=== PATIENT | female | born 2000 | race Caucasian/White ===

== ENCOUNTER 2021-02-23 08:40 | Inpatient (IN) | payer BC, MEDICAID, OTHER ==
--- NOTE | 2021-02-23 09:08 | ED ---
General Adult HPI - General Chief complaint: Psychiatric Symptoms Stated complaint: mental health Time Seen by Provider: 02/23/21 08:49 Source: patient, family, RN notes reviewed, old records reviewed Mode of arrival: ambulatory Limitations: no limitations - History of Present Illness Initial comments: 20-year-old female presenting for mental health evaluation. Patient has had increased depression, anxiety, and suicidal thoughts over the past 2 months. Denies current medical history or physical complaint. No suicide attempt. - Related Data Home Medications Medication Instructions Recorded Confirmed No Known Home Medications 02/23/21 02/23/21 Allergies Allergy/AdvReac Type Severity Reaction Status Date / Time lemon Allergy Unknown Verified 02/23/21 10:10 Review of Systems ROS Statement: Those systems with pertinent positive or pertinent negative responses have been documented in the HPI. ROS Other: All systems not noted in ROS Statement are negative. Past Medical History Past Medical History: Asthma, Pneumonia History of Any Multi-Drug Resistant Organisms: None Reported Past Surgical History: No Surgical Hx Reported Past Psychological History: Bipolar, Depression Smoking Status: Never smoker Past Alcohol Use History: None Reported Past Drug Use History: None Reported General Exam Limitations: no limitations General appearance: alert, in no apparent distress Head exam: Present: atraumatic, normocephalic Eye exam: Present: normal appearance, PERRL, EOMI ENT exam: Present: normal exam Neck exam: Present: normal inspection. Absent: tenderness, meningismus Respiratory exam: Present: normal lung sounds bilaterally. Absent: respiratory distress, wheezes Cardiovascular Exam: Present: regular rate, normal rhythm GI/Abdominal exam: Present: soft. Absent: distended, tenderness, guarding, rebound Extremities exam: Present: normal inspection, normal capillary refill Neurological exam: Present: alert, oriented X3, CN II-XII intact, normal gait. Absent: motor sensory deficit Psychiatric exam: Present: depressed, anxious, suicidal ideation Skin exam: Present: warm, dry, intact Course Vital Signs 02/23/21 08:41 Temperature 98.2 F Pulse Rate 87 Respiratory 18 Rate Blood Pressure 154/98 O2 Sat by Pulse 96 Oximetry - Reevaluation(s) Reevaluation #1: 02/23/21 09:07 Medically cleared for EPS. Medical Decision Making - Medical Decision Making pt was evaluated by EPS and felt to require inpatient psychiatric evaluation and treatment. - Lab Data Lab Results 02/23/21 Range/Units 09:11 Urine Opiates Screen Not Detected (NotDetected) Ur Oxycodone Screen Not Detected (NotDetected) Urine Methadone Screen Not Detected (NotDetected) Ur Propoxyphene Screen Not Detected (NotDetected) Ur Barbiturates Screen Not Detected (NotDetected) U Tricyclic Antidepress Not Detected (NotDetected) Ur Phencyclidine Scrn Not Detected (NotDetected) Ur Amphetamines Screen Not Detected (NotDetected) U Methamphetamines Scrn Not Detected (NotDetected) U Benzodiazepines Scrn Not Detected (NotDetected) Urine Cocaine Screen Not Detected (NotDetected) U Marijuana (THC) Screen Detected H (NotDetected) Disposition Clinical Impression: Suicidal ideation, Depression Disposition: ADMITTED IP TO THIS [facility] Condition: Stable Is patient prescribed a controlled substance at d/c from ED?: No Referrals: None,Stated [Primary Care Provider] - 1-2 days Decision to Admit Reason: Admit from EC Decision Date: 02/23/21 Decision Time: 11:45
[2021-02-23 10:13] LABS: Amphetamine Screen,Urine Not Detected (NotDetected); Barbiturate Screen,Urine Not Detected (NotDetected); Benzodiazepines Screen,Urine Not Detected (NotDetected); Cocaine Screen,Urine Not Detected (NotDetected); Methadone Screen, Urine Not Detected (NotDetected); Opiate Screen,Urine Not Detected (NotDetected); Oxycodone Screen, Urine Not Detected (NotDetected); Phencyclidine Screen,Urine Not Detected (NotDetected); Tricyclic Antidepressant,Urine Not Detected (NotDetected); Urn Cannabinoid Scrn Detected (NotDetected)
[2021-02-23] MEDS ORDERED: MAG HYDROX/AL HYDROX/SIMETH 30 ML CUP PO PRN (14:03)
[2021-02-23] MEDS ORDERED: MAGNESIUM HYDROXIDE 2,400 MG/10 ML CUP PO PRN (14:03)
[2021-02-23] MEDS ORDERED: LORazepam 1 MG TAB PO PRN (14:03)
[2021-02-23] MEDS ORDERED: ACETAMINOPHEN TAB 325 MG TAB PO PRN (14:03)
[2021-02-23] MEDS ORDERED: haloperidoL 5 MG TAB PO PRN (14:05)
[2021-02-23] MEDS ORDERED: HALOPERIDOL LACTATE 5 MG/ML 1 ML VIAL IM PRN (14:05)
[2021-02-23] MEDS ORDERED: LORazepam 2 MG/ML INJ IM PRN (14:05)
--- NOTE | 2021-02-23 22:59 | P.CONS ---
History of Present Illness - Reason for Consult Consult date: 02/23/21 Medical management - History of Present Illness This is a 20-year-old white patient is being admitted for depression and anxiety and suicidal thoughts. The time of examination, no suicidal attempts. No chest pain no abdominal pain no nausea no vomiting no dizziness no shortness of breath. Patient appears to be okay, does not appear to be in distress. There was no reported chest pain hematuria or dysuria. Review of Systems 10 systems reviewed, pertinent positive and negative findings as in HPI. No chest pain no abdominal pain. Positive for depression. Past Medical History Past Medical History: Asthma, Pneumonia History of Any Multi-Drug Resistant Organisms: None Reported Past Surgical History: No Surgical Hx Reported Past Psychological History: Bipolar, Depression Smoking Status: Never smoker Past Alcohol Use History: None Reported Past Drug Use History: None Reported Medications and Allergies Home Medications Medication Instructions Recorded Confirmed Type No Known Home Medications 02/23/21 02/23/21 History Allergies Allergy/AdvReac Type Severity Reaction Status Date / Time lemon Allergy Unknown Verified 02/23/21 10:10 Physical Exam Vitals: Vital Signs Temp Pulse Resp BP Pulse Ox 02/23/21 11:47 18 02/23/21 08:41 98.2 F 87 18 154/98 96 Intake and Output 02/23/21 02/23/21 02/23/21 06:59 14:59 22:59 Other: Weight 123.831 kg Constitutional: No acute distress, conversant, pleasant Eyes: Anicteric sclerae, moist conjunctiva, no lid-lag, PERRLA ENMT: NC/AT,Oropharynx clear, no erythema, exudates Neck:Supple, FROM, no masses, or JVD Lungs: Clear to auscultation, Clear to percussion, Normal respiratory effort, no accessory muscle use Cardiovascular: Heart regular in rate and rhythm, No murmurs, gallops, or rubs no peripheral edema Abdominal: Soft Nontender, non distended, no guarding, no rebound or rigidity, Normoactive bowel sounds , obese. Skin: Normal temperature, tone, texture, turgor, No induration No subcutaneous nodules, No rash, lesions, No ulcers Extremities:No digital cyanosis No clubbing, Pedal pulses intact and symmetrical Radial pulses intact and symmetrical Normal gait and station, No calf tenderness Psychiatric: Alert and oriented to person, place and time, depressed. Neuro: Muscles Strength 5/5 in all 4 extremities, Sensation to light touch grossly present throughout, Cranial nerves II-XII grossly intact. No focal sensory deficits Results Labs: Abnormal Lab Results - Last 24 Hours (Table) 02/23/21 Range/Units 09:11 U Marijuana (THC) Screen Detected H (NotDetected) Assessment and Plan Plan: 1. Depression: Management per psychiatry. Medically clear for EPS 2. Morbid obesity: BMI 41.5 Thank you for the consultation
[2021-02-24 07:24] LABS: Basophils % (A) 0 %; Eosinophils # (A) 0.1 k/uL (0-0.7); Eosinophils % (A) 2 %; HCT 46.8 % (34.0-46.0); HGB 15.8 gm/dL (11.4-16.0); Lymphocytes # (A) 3.8 k/uL (1.0-4.8); Lymphocytes % (A) 52 %; MCH 31.5 pg (25.0-35.0); MCHC 33.6 g/dL (31.0-37.0); MCV 93.5 fL (80.0-100.0); Mean Platelet Volume 7.6; Monocytes # (A) 0.4 k/uL (0-1.0); Monocytes % (A) 6 %; Neutrophils # (A) 2.9 k/uL (1.3-7.7); Neutrophils % (A) 39 %; Platelet Count 315 k/uL (150-450); RBC 5.01 m/uL (3.80-5.40); RDW 12.7 % (11.5-15.5); WBC 7.4 k/uL (4.0-11.0)
[2021-02-24 07:38] LABS: ALT 26 U/L (4-34); AST 30 U/L (14-36); African American GFR (CKD) >90 (>60 ml/min/1.73 sqM); Albumin 4.2 g/dL (3.5-5.0); Alkaline Phosphatase 98 U/L (38-126); Anion Gap 11 mmol/L; Blood Urea Nitrogen 11 mg/dL (7-17); Calcium 9.8 mg/dL (8.4-10.2); Carbon Dioxide 26 mmol/L (22-30); Chloride 103 mmol/L (98-107); Glucose 93 mg/dL (74-99); Non-African American GFR(CKD) >90 (>60 ml/min/1.73 sqM); Potassium 4.2 mmol/L (3.5-5.1); Sodium 140 mmol/L (137-145); Total Bilirubin 0.7 mg/dL (0.2-1.3); Total Protein 7.3 g/dL (6.3-8.2)
[2021-02-24 11:52] LABS: Appearance,Urine Clear (Clear); Bilirubin,Urine Negative (Negative); Blood,Urine Negative (Negative); Color,Urine Colorless; Glucose,Urine (UA) Negative (Negative); Ketones,Urine Negative (Negative); Leukocyte Esterase,Urine Negative (Negative); Nitrite,Urine Negative (Negative); PH, Urine 5.5 (5.0-8.0); Protein,Urine Negative (Negative); Specific Gravity,Urine 1.002 (1.001-1.035); Urobilinogen,Urine <2.0 mg/dL (<2.0)
[2021-02-24 14:06] LABS: Hemoglobin A1C 4.9 % (4.0-6.0)
[2021-02-24 18:05] LABS: Chol/HDL Ratio 3.59; Cholesterol 201 mg/dL (0-200); LDL Cholesterol,Calculated 117.2 mg/dL (0.0-131.0)
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
[2021-02-24] MEDS: PRAZOSIN 1 MG CAP PO SCH (20:06)
[2021-02-24] MEDS: ESCITALOPRAM 20 MG TAB PO SCH (20:06)
--- NOTE | 2021-02-25 11:15 | PN ---
PROGRESS NOTE DATE OF SERVICE: 02/25/2021. CHIEF COMPLAINT: The patient was depressed. She had suicidal thinking. She has a significant history of trauma. INTERVAL HISTORY: Patient has been doing fair. She had a quiet day yesterday. She comes out on the unit. She will interact with others. She seems to be making a reasonable adjustment to being in the hospital. She attended most groups and was appropriate in groups. She said she slept better last night. Today she has been up and overall doing about the same. She says her mood is better, as is her outlook. She notes that she has had a long-term struggle with social anxiety, with one issue with that being struggles to just make telephone calls. She said she will procrastinate and not make telephone calls. She says that one outcome of that is that she has been needing to get some dental work done to have wisdom teeth removed, though she just avoids making the telephone call to make that happen. Also she notes that she had been getting followup with [facility] and had received medications about a year ago though had not had any followup at least since then. She acknowledges that one factor for not following through with [facility] is that she was quite reluctant to have telephone or zoom contacts with Mental Health out of her phone phobia. She says that the only issue she is having at present is a little shakiness in her hands, though she does not think it is a significant issue. She has been social with others. She acknowledges that she has struggled long-term with her relationship with her mother. She says her mother uses her to voice all of mother's complaints and concerns, whereas mother has never been emotionally available to support the patient in any struggle she has had. Acknowledges that in that frame of things she tends to blame herself and see herself as the problem for others as opposed to having some sense that perhaps she should have grief for her mother, who struggles with emotional connections. The patient tolerates her psychotropic medications. MENTAL STATUS: Patient sat without restlessness. She had good eye contact. She answered questions appropriately. Her thoughts were clear. Her affect was a little constricted. She smiled some. Her mood was dysphoric. She seemed somewhat distressed. There was no indication of thought disorder. She voiced no thoughts of harm. Cognition was clear. ASSESSMENT: I will continue the current diagnosis and treatment plan. I will continue her on Lexapro 20 mg a day. She may be having some early side effects from starting a 20 mg dose of Lexapro, though I discussed with her that that may settle down over the next few days. It does not seem to be bothering her to any extent that it would make sense to lower the dose of her medication for a few days. I discussed that longer-term there might be consideration for addition of an augmentation medication, especially given her long history of trauma, but at this point I would just see how she does with the start of Lexapro at a more therapeutic dose than she had been on previously. She says she has been working on her phone phobia and has made some telephone calls on the unit, which was a plus for her. She says she will continue to work on some of her struggles with blaming herself and having excessive guilt. We will focus on stabilization and discharge planning. CHANEL / MATTHEW: [id number] /
[2021-02-25] MEDS: ESCITALOPRAM 20 MG TAB PO SCH (21:10)
[2021-02-25] MEDS: PRAZOSIN 1 MG CAP PO SCH (21:10)
[2021-02-25] MEDS ORDERED: diphenhydrAMINE 25 MG CAP PO STA (22:26)
[2021-02-26 01:05] VITALS: BP 140/84; PULSE 85; RESP 16; TEMP 96.5
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
== END 2021-02-26 14:33 | disposition home or self-care (01) | DRG 885 ==
LOC: EC 08:40 → 3MHU 13:55
PROVIDERS: ADMIT Psychiatry & Neurology Psychiatry; ATTEND Psychiatry & Neurology Psychiatry
DX: F33.2 Major depressive disorder, recurrent severe without psychotic features (principal); R45.851 Suicidal ideations; F40.10 Social phobia, unspecified; F43.10 Post-traumatic stress disorder, unspecified; F68.8 Other specified disorders of adult personality and behavior; J45.909 Unspecified asthma, uncomplicated; Z72.820 Sleep deprivation; Z79.899 Other long term (current) drug therapy; Z91.410 Personal history of adult physical and sexual abuse; E66.01 Morbid (severe) obesity due to excess calories; F12.10 Cannabis abuse, uncomplicated
CPT/HCPCS: 80053; 80061; 80306; 81003; 81025; 82075; 83036; 84443; 85025; 87635; 99285

== ENCOUNTER 2022-03-09 13:09 | Inpatient (IN) | payer MEDICAID, OTHER ==
--- NOTE | 2022-03-09 13:40 | ED ---
Psych HPI - General Chief Complaint: Psychiatric Symptoms Stated Complaint: mental health Time Seen by Provider: 03/09/22 13:19 Source: patient Mode of arrival: ambulatory - History of Present Illness Initial Comments: 21-year-old who is visiting from female to male who states she was feeling depressed for at least last couple months but because some personal issues including not being able state the mother's house is showing very depressed and considering suicide by overdose or if that wasn't possible some other means which are unspecified. Possible recent alcohol use marijuana use no other street drugs reported. No fevers chills nausea vomiting sweats. Patient does have a prior history of depression. MD Complaint: suicidal ideation, feels depressed - Related Data Home Medications Medication Instructions Recorded Confirmed Escitalopram [Lexapro] 20 mg PO DAILY 03/09/22 03/09/22 Previous Rx's Medication Instructions Recorded Prazosin [Minipress] 2 mg PO HS 30 Days cap 02/26/21 Allergies Allergy/AdvReac Type Severity Reaction Status Date / Time citric acid Allergy Unknown Verified 03/09/22 18:02 lemon Allergy Unknown Verified 03/09/22 18:02 Review of Systems ROS Statement: Those systems with pertinent positive or pertinent negative responses have been documented in the HPI. ROS Other: All systems not noted in ROS Statement are negative. Past Medical History Past Medical History: Asthma, Pneumonia History of Any Multi-Drug Resistant Organisms: None Reported Past Surgical History: No Surgical Hx Reported Past Psychological History: Bipolar, Depression Smoking Status: Never smoker Past Alcohol Use History: None Reported Past Drug Use History: Marijuana General Exam - General Exam Comments Initial Comments: This is a well-developed well-nourished awake alert oriented 4 person Limitations: no limitations General appearance: alert, in no apparent distress Head exam: Present: atraumatic, normocephalic, normal inspection Eye exam: Present: normal appearance, PERRL, EOMI. Absent: scleral icterus, conjunctival injection, periorbital swelling ENT exam: Present: normal exam, mucous membranes moist Neck exam: Present: normal inspection, full ROM. Absent: tenderness, meningismus, lymphadenopathy Respiratory exam: Present: normal lung sounds bilaterally. Absent: respiratory distress, wheezes, rales, rhonchi, stridor Cardiovascular Exam: Present: normal rhythm, tachycardia, normal heart sounds. Absent: systolic murmur, diastolic murmur, rubs, gallop, clicks GI/Abdominal exam: Absent: distended, tenderness, guarding, rebound, rigid Extremities exam: Present: normal inspection, full ROM, normal capillary refill. Absent: tenderness, pedal edema, joint swelling, calf tenderness Back exam: Present: normal inspection Neurological exam: Present: alert, oriented X3, CN II-XII intact Psychiatric exam: Present: depressed, anxious, suicidal ideation Skin exam: Present: warm, dry, intact, normal color. Absent: rash Course Vital Signs 03/09/22 13:16 Temperature 98.3 F Pulse Rate 105 H Respiratory 18 Rate O2 Sat by Pulse 99 Oximetry Medical Decision Making - Medical Decision Making The patient was evaluated by the psychiatric service and will be admitted for inpatient evaluation and treatment. Patient will voluntarily sign in - Lab Data Lab Results 03/09/22 Range/Units 13:35 Urine Opiates Screen Not Detected (NotDetected) Ur Oxycodone Screen Not Detected (NotDetected) Urine Methadone Screen Not Detected (NotDetected) Ur Propoxyphene Screen Not Detected (NotDetected) Ur Barbiturates Screen Not Detected (NotDetected) U Tricyclic Antidepress Not Detected (NotDetected) Ur Phencyclidine Scrn Not Detected (NotDetected) Ur Amphetamines Screen Not Detected (NotDetected) U Methamphetamines Scrn Not Detected (NotDetected) U Benzodiazepines Scrn Not Detected (NotDetected) Urine Cocaine Screen Not Detected (NotDetected) U Marijuana (THC) Screen Detected H (NotDetected) Disposition Clinical Impression: Depression, Suicidal ideation Disposition: TRANSFER TO PSYCH HOSP/UNIT Condition: Stable Referrals: None,Stated [Primary Care Provider] - 1-2 days Decision Date: 03/09/22 Decision Time: 20:34
[2022-03-09 14:01] LABS: Urn Cannabinoid Scrn Detected (NotDetected)
[2022-03-09 14:02] LABS: Amphetamine Screen,Urine Not Detected (NotDetected); Barbiturate Screen,Urine Not Detected (NotDetected); Benzodiazepines Screen,Urine Not Detected (NotDetected); Cocaine Screen,Urine Not Detected (NotDetected); Methadone Screen, Urine Not Detected (NotDetected); Opiate Screen,Urine Not Detected (NotDetected); Oxycodone Screen, Urine Not Detected (NotDetected); Phencyclidine Screen,Urine Not Detected (NotDetected); Tricyclic Antidepressant,Urine Not Detected (NotDetected)
[2022-03-09] MEDS ORDERED: ACETAMINOPHEN TAB 325 MG TAB PO PRN (21:58)
[2022-03-09] MEDS ORDERED: LORazepam 1 MG TAB PO PRN (21:58)
[2022-03-09] MEDS ORDERED: MAG HYDROX/AL HYDROX/SIMETH 30 ML CUP PO PRN (21:58)
[2022-03-09] MEDS ORDERED: MAGNESIUM HYDROXIDE 2,400 MG/10 ML CUP PO PRN (21:58)
[2022-03-09] MEDS ORDERED: HALOPERIDOL LACTATE 5 MG/ML 1 ML VIAL IM PRN (21:58)
[2022-03-09] MEDS ORDERED: haloperidoL 5 MG TAB PO PRN (22:08)
[2022-03-09] MEDS ORDERED: LORazepam 2 MG/ML INJ IM PRN (22:08)
--- NOTE | 2022-03-10 02:31 | P.CONS ---
History of Present Illness - Reason for Consult Consult date: 03/09/22 - History of Present Illness The patient is a 21-year-old F who presented to the emergency room with complaints of depression and suicidal ideation. The patient was admitted to the mental health unit when she was seen and evaluated. She reports that she has been struggling with multiple social situations which is taking a serious toll on her mental health. She reports currently worrying about being homeless and she is set to be kicked out of her place. She denied any physical complaints at the time of interview. She denied experiencing chest discomfort, shortness of breath, fever, chills, cough, nausea, vomiting, abdominal pain, diarrhea. The patient does report occasional marijuana use. Review of systems: Pertinent positives and negatives as discussed in HPI, a complete review of systems was performed and all other systems are negative. Physical examination: General: non toxic, no distress, appears at stated age, obese Derm: no unusual rashes/lesions, no unusual ecchymoses, warm, dry Head: atraumatic, normocephalic, symmetric Eyes: EOMI, no lid lag, anicteric sclera ENT: Nose and ears atraumatic, no thrush, no pharyngeal erythema Neck: trachea midline, supple Mouth: no lip lesion, mucus membranes moist Cardiovascular: S1S2 reg, no murmur, no edema Lungs: CTA bilateral, no rhonchi, no rales , no accessory muscle use Abdominal: soft, nontender to palpation, no guarding Ext: no gross muscle atrophy, no contractures, Neuro: No gross focal neuro deficits noted Psych: Alert, oriented, appropriate affect Assessment/plan Marijuana abuse -Advised on importance of cessation Depression with suicidal ideation -As per psychiatry Thank you for allowing us to participate in the care of this patient. We will follow peripherally. Do not hesitate to contact us with questions. Someone can be reached from the [facility] hospitalist group at all hours of the day at [phone]. Past Medical History Past Medical History: Asthma, Pneumonia History of Any Multi-Drug Resistant Organisms: None Reported Past Surgical History: No Surgical Hx Reported Past Anesthesia/Blood Transfusion Reactions: No Reported Reaction Past Psychological History: Bipolar, Depression Smoking Status: Never smoker Past Alcohol Use History: None Reported Past Drug Use History: Marijuana - Past Family History Mother Family Medical History: COPD Medications and Allergies Home Medications Medication Instructions Recorded Confirmed Type Prazosin [Minipress] 2 mg PO HS 30 Days cap 02/26/21 03/09/22 Rx Escitalopram [Lexapro] 20 mg PO DAILY 03/09/22 03/09/22 History Allergies Allergy/AdvReac Type Severity Reaction Status Date / Time citric acid Allergy Unknown Verified 03/09/22 18:02 lemon Allergy Unknown Verified 03/09/22 18:02 Physical Exam Vitals: Vital Signs Temp Pulse Pulse Resp BP BP Pulse Ox 03/09/22 22:18 97.3 F 83 18 133/67 94 03/09/22 21:45 98.3 F 64 16 124/71 100 03/09/22 13:16 98.3 F 105 H 18 99 Intake and Output 03/09/22 03/09/22 03/10/22 14:59 22:59 06:59 Other: Weight 122.47 kg 121.563 kg Results Labs: Abnormal Lab Results - Last 24 Hours (Table) 03/09/22 Range/Units 13:35 U Marijuana (THC) Screen Detected H (NotDetected)
[2022-03-10 06:30] LABS: Basophils % (A) 1 %; Eosinophils # (A) 0.2 k/uL (0-0.7); Eosinophils % (A) 2 %; HCT 47.4 % (39.0-53.0); HGB 15.2 gm/dL (13.0-17.5); Lymphocytes % (A) 55 %; MCH 30.3 pg (25.0-35.0); MCHC 32.1 g/dL (31.0-37.0); MCV 94.4 fL (80.0-100.0); Mean Platelet Volume 7.9; Monocytes # (A) 0.5 k/uL (0-1.0); Monocytes % (A) 7 %; Neutrophils # (A) 2.5 k/uL (1.3-7.7); Neutrophils % (A) 34 %; Platelet Count 260 k/uL (150-450); RBC 5.02 m/uL (4.30-5.90); RDW 12.5 % (11.5-15.5); WBC 7.3 k/uL (4.0-11.0)
[2022-03-10 06:44] LABS: ALT 19 U/L (4-49); AST 28 U/L (17-59); African American GFR (CKD) 155 (>60 ml/min/1.73 sqM); Albumin 4.5 g/dL (3.5-5.0); Alkaline Phosphatase 70 U/L (38-126); Anion Gap 12 mmol/L; Blood Urea Nitrogen 14 mg/dL (9-20); Calcium 9.4 mg/dL (8.4-10.2); Carbon Dioxide 24 mmol/L (22-30); Chloride 105 mmol/L (98-107); Glucose 93 mg/dL (74-99); Non-African American GFR(CKD) 134 (>60 ml/min/1.73 sqM); Potassium 4.7 mmol/L (3.5-5.1); Sodium 141 mmol/L (137-145); Total Bilirubin 0.8 mg/dL (0.2-1.3); Total Protein 7.2 g/dL (6.3-8.2)
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
[2022-03-10 17:27] LABS: Chol/HDL Ratio 3.51 Ratio; LDL Cholesterol,Calculated 136.6 mg/dL (0.0-131.0); VLDL Calculation 15.66 mg/dL (5.00-40.00)
[2022-03-10] MEDS: PRAZOSIN 1 MG CAP PO SCH (20:52)
[2022-03-10] MEDS ORDERED: PRAZOSIN 1 MG CAP PO SCH (21:00)
[2022-03-11] MEDS ORDERED: FLUoxetine HCL 20 MG CAP PO SCH ×2 (10:00→12:00)
--- NOTE | 2022-03-11 11:48 | P.PN ---
Progress Note - Text Progress Note Date: 03/11/22 Interval History: Patient was seen attending group and was directable and agreeable to speak with radio news writer in the office. Patient reports that he is doing well. He is currently denying any suicidal or homicidal ideation, intention, and/or plan. The patient denies any auditory or visual hallucinations. He has been in adherent with his medications and is not reporting any significant side effects. The patient reports that he is feeling better since coming into the hospital and has been learning to cope with his stress. He is future and goal oriented. He is anticipated for discharge tomorrow as his Prozac was titrated. Mental Status Exam: General Appearance: Patient appears to be stated age is alert, directable, and cooperative. Behavior: Patient is calmly seated without any agitated behavior. Speech: Patient's speech is fluent and nonpressured. Mood/Affect: Mood is improving mildly, affect is congruent and constricted. Suicidality/Homicidality: Patient denies having any suicidal or homicidal ideation intent or plan. Perceptions: Patient denies any visual hallucinations and denies any auditory hallucinations Though content/process: There is no evidence of any delusional thought content and thought process is linear and goal-directed. Memory and concentration: AOX3, grossly intact for the purposes of this session Judgment and insight: Improving mildly Vital Signs Temp 97.6 F 03/11/22 06:57 Pulse 71 03/11/22 06:57 Resp 16 03/11/22 06:57 BP 123/58 03/11/22 06:57 Pulse Ox 94 03/09/22 22:18 FiO2 Laboratory Results - Last 24 Hours 03/10/22 06:01 Triglycerides 78.30 Cholesterol 213.00 H LDL Cholesterol, Calc 136.6 H VLDL Cholesterol, Calc 15.66 HDL Cholesterol 60.70 H Cholesterol/HDL Ratio 3.51 Assessment Major depressive disorder, recurrent, severe Posttraumatic stress disorder Cluster B personality disorder Plan: -Patient continues to meet criteria for inpatient psychiatric admission for symptom stabilization and safety. Patient has signed adult voluntary form and medication consent and was placed in patient's chart. -Medications: Increase Prozac to 30 mg by mouth daily for depression/anxiety Prazosin 1 mg by mouth at bedtime for PTSD related nightmares -When necessary Ativan and Haldol for agitation/aggression. -SW on board for discharge planning. Encouraged the patient to participate in milieu.
[2022-03-11] MEDS: PRAZOSIN 1 MG CAP PO SCH (20:30)
[2022-03-12 07:03] VITALS: BP 95/51; PULSE 50; RESP 17; TEMP 97.3
[2022-03-12] MEDS ORDERED: FLUoxetine HCL 10 MG CAP PO SCH (09:00)
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
== END 2022-03-12 11:07 | disposition home or self-care (01) | DRG 885 ==
LOC: EDSEX → EC 13:09 → 3MHU 21:13 → UNDODISIN 03-12 09:45
PROVIDERS: ADMIT Psychiatry & Neurology Psychiatry; ATTEND Psychiatry & Neurology Psychiatry
DX: F33.2 Major depressive disorder, recurrent severe without psychotic features (principal); R03.1 Nonspecific low blood-pressure reading; F44.81 Dissociative identity disorder; F60.89 Other specific personality disorders; F12.10 Cannabis abuse, uncomplicated; Z71.51 Drug abuse counseling and surveillance of drug abuser; F43.10 Post-traumatic stress disorder, unspecified; Z62.810 Personal history of physical and sexual abuse in childhood; Z71.89 Other specified counseling; J45.909 Unspecified asthma, uncomplicated; Z87.01 Personal history of pneumonia (recurrent); Z20.822 Contact with and (suspected) exposure to COVID-19
CPT/HCPCS: 80053; 80061; 80306; 82075; 83036; 84443; 85025; 87635; 99285